=== PATIENT | male | born 1950 | race Two or more races ===

== ENCOUNTER 2024-06-11 10:52 | Emergency (ER) | payer OTHER ==
[~2024-06-11] VITALS: Ht 175.3 cm; Wt 70.8 kg
[~2024-06-11 10:52] MED LIST: PRILOSEC10 MG PO
[2024-06-11] MEDS ORDERED: ECOTRIN81 MG (11:25)
[2024-06-11] MEDS ORDERED: TOPROL XL50 M1 (11:25)
[2024-06-11] MEDS ORDERED: LIPITOR20 MG PO (11:25)
[2024-06-11] MEDS ORDERED: COZAAR25 MG PO (11:26)
[2024-06-11] MEDS ORDERED: LEVOTHYROXINE25 MCG PO (11:26)
[2024-06-11] MEDS ORDERED: 0.9 % SODIUM CHLORIDE 1,000 ML IV ONE (11:45)
[2024-06-11] MEDS ORDERED: FAMOtidine 10 MG/ML (4ML VIAL) IV ONE (11:45)
[2024-06-11] MEDS ORDERED: FAMOTIDINE/PF 20 MG/2 ML VIAL ONE (11:54)
[2024-06-11 12:31] LABS: HEMATOCRIT 44.6 % (39.0-48.0); HEMOGLOBIN 15.1 g/dL (13-16.00); MEAN CELL VOLUME 96.6 fL (80.0-100.00); MEAN CORPUSCULAR HEMOGLOBIN 32.8 pg (27.00-32.0); MEAN CORPUSCULAR HGB CONC 33.9 g/dl (32.0-36.0); PLATELET COUNT 180 K/uL (150-450); RED BLOOD COUNT 4.62 M/uL (4.00-6.00); RED CELL DISTRIBUTION WIDTH 13.5 % (11.5-14.5)
[2024-06-11 13:07] LABS: ALBUMIN 3.2 gm/dL (3.4-5.0); BILIRUBIN TOTAL 0.3 mg/dL (0.3-1.2); CALCIUM 9.3 mg/dL (8.5-10.1); CREATININE SERUM 0.88 mg/dL (0.70-1.30); GFR 84.42; POTASSIUM 3.89 mEq/L (3.5-5.1); TOTAL PROTEIN 8.2 gm/dL (6.4-8.2)
[2024-06-11] MEDS ORDERED: PEPCID AC20 MG PO (15:12)
[2024-06-11] MEDS ORDERED: METRONIDAZOLE500 MG PO (15:12)
== END 2024-06-11 15:46 | disposition home or self-care (01) ==
LOC: ER 10:53
PROVIDERS: General Practice
DX: R19.7 Diarrhea, unspecified (principal)
CPT/HCPCS: 36415; 96365; 99282; J3490; J7030